=== PATIENT | female | born 2000 | race Caucasian/White ===

== ENCOUNTER → 2020-05-16 | Outpatient (CLI) | payer BC, SELFPAY ==
[2020-05-19 06:07] LABS: Chlamydia By Nucleic Acid AMP Negative (Negative)
[2020-05-19 20:16] LABS: Gonococcus By Nucleic Acid AMP Negative (Negative)
[2020-05-19 20:22] LABS: HPV Reflexed? NOT INDICATED
== END | disposition home or self-care (01) ==
LOC: LABSPEC 11:25
PROVIDERS: Visit Provider Student in an Organized Health Care Education/Training Program
DX: Z12.4 Encounter for screening for malignant neoplasm of cervix (principal); Z11.3 Encounter for screening for infections with a predominantly sexual mode of transmission; Z32.01 Encounter for pregnancy test, result positive
CPT/HCPCS: 87491; 87591; 88175; G0145

== ENCOUNTER → 2020-05-30 09:34 | Outpatient (CLI) | payer BC, SELFPAY ==
[2020-05-30 10:40] LABS: Hematocrit 36.3 % (37-47); Hemoglobin 11.3 g/dL (12.0-15.0); Mean Corp Hgb Conc 31.1 g/dL (32-36); Mean Corpuscular Hgb 24.6 pg (27.0-32.0); Mean Corpuscular Volume 79.1 fL (81-99); Platelet Count 288 K/mm3 (150-450); RBC Distribution Width CV 14.9 % (11.6-14.6); Red Blood Count 4.59 M/mm3 (4.2-5.4); White Blood Count 9.6 K/mm3 (4.4-11.0)
[2020-05-30 10:47] LABS: Glucose Challenge Gest 1H 50g 98 mg/dL (70-140)
== END ==
PROVIDERS: Visit Provider Student in an Organized Health Care Education/Training Program
DX: Z34.81 Encounter for supervision of other normal pregnancy, first trimester (principal)
CPT/HCPCS: 36415; 82950; 85027; 86850; 86900; 86901

== ENCOUNTER → 2020-06-22 10:23 | Outpatient (CLI) | payer BC, SELFPAY ==
[2020-06-22 13:48] LABS: Absolute Lymphocyte Count 1.64 X10^3/uL (0.83-4.51); Absolute Neutrophil Count 7.9 X10^3/uL (2.0-7.7); Basophil# 0.02 X10^3/uL; Basophil% 0.2 % (0-1); Eosinophil# 0.02 X10^3/uL; Eosinophils% 0.2 % (0-5); Hematocrit 36.6 % (37-47); Hemoglobin 11.4 g/dL (12.0-15.0); Lymphocyte # 1.64 X10^3/ul (4.0); Lymphocyte % 16.3 % (19-41); Mean Corp Hgb Conc 31.1 g/dL (32-36); Mean Corpuscular Hgb 25.2 pg (27.0-32.0); Mean Platelet Vol. 11.1 fl (6.2-12.0); Monocyte# 0.46 X10^3/uL; Monocyte% 4.6 % (0-10); NRBC Flagged by Analyzer 0 % (0-5); Neutrophil # 7.88 X10^3/uL (2.7-7.7); Neutrophil % 78.2 % (47-70); Platelet Count 319 K/mm3 (150-450); RBC Distribution Width CV 15.3 % (11.6-14.6); RBC Distribution Width SD 44.3 fl (35.1-43.9); Red Blood Count 4.52 M/mm3 (4.2-5.4); White Blood Count 10.1 K/mm3 (4.4-11.0)
[2020-06-22 14:37] LABS: HIV - WCH Non-Reactive (Nonreactive); Hepatitis B Surface Antigen Non-Reactive (Nonreactive); Hepatitis C Antibody Non-Reactive (Nonreactive); Rubella IgG Reactive (Nonreactive); Syphilis Antibodies Non-reactive
== END ==
PROVIDERS: Visit Provider Student in an Organized Health Care Education/Training Program
DX: Z34.81 Encounter for supervision of other normal pregnancy, first trimester (principal)
CPT/HCPCS: 36415; 85025; 86703; 86762; 86803; 87086; 87088; 87340

== ENCOUNTER → 2020-10-09 16:31 | Outpatient (CLI) | payer BC, MEDICAID, SELFPAY ==
[2020-10-09 17:23] LABS: Hematocrit 33.6 % (37-47); Hemoglobin 10.8 g/dL (12.0-15.0); Mean Corp Hgb Conc 32.1 g/dL (32-36); Mean Corpuscular Hgb 26.5 pg (27.0-32.0); Mean Corpuscular Volume 82.6 fL (81-99); Mean Platelet Vol. 10.2 fl (6.2-12.0); Platelet Count 289 K/mm3 (150-450); RBC Distribution Width CV 14.5 % (11.6-14.6); RBC Distribution Width SD 43.3 fl (35.1-43.9); Red Blood Count 4.07 M/mm3 (4.2-5.4); White Blood Count 11.2 K/mm3 (4.4-11.0)
[2020-10-09 18:35] LABS: Glucose Challenge Gest 1H 50g 113 mg/dL (70-140)
== END ==
PROVIDERS: Visit Provider Obstetrics & Gynecology
DX: Z34.82 Encounter for supervision of other normal pregnancy, second trimester (principal)
CPT/HCPCS: 36415; 82950; 85027

== ENCOUNTER → 2020-10-23 09:29 | Outpatient (CLI) | payer BC, MEDICAID, SELFPAY ==
[2020-10-23 11:50] LABS: Hemoglobin 11.3 g/dL (12.0-15.0); Mean Corp Hgb Conc 32.3 g/dL (32-36); Mean Corpuscular Hgb 26.6 pg (27.0-32.0); Mean Corpuscular Volume 82.4 fL (81-99); Mean Platelet Vol. 10.5 fl (6.2-12.0); Platelet Count 303 K/mm3 (150-450); RBC Distribution Width CV 14.4 % (11.6-14.6); RBC Distribution Width SD 42.7 fl (35.1-43.9); Red Blood Count 4.25 M/mm3 (4.2-5.4); White Blood Count 9.8 K/mm3 (4.4-11.0)
[2020-10-23 12:02] LABS: Protein, Urine (Random) 18.2 mg/dL (<11.9); Protein:Creat Ratio 131 mg/g CRE (0-200)
[2020-10-23 12:04] LABS: ALB/GLOB Ratio 0.6 RATIO (0.9-2.4); AST(SGOT) 28 U/L (15-37); Alanine Aminotransfer ALT/SGPT 61 U/L (13-56); Albumin, Serum 2.8 g/dL (3.2-5.0); Alkaline Phosphatase 177 U/L (45-117); Anion Gap 9 (5-15); BUN 6 mg/dL (7-18); BUN/Creat Ratio 11.2 RATIO (10-20); Calcium,Total 8.8 mg/dL (8.5-10.1); Chloride 103 mmol/L (98-107); Creatinine, Serum 0.54 mg/dL (0.55-1.02); EST Glomerular Filtration Rate 150 mL/min (>60); Est Glom Filt Rate - Afr Amer 182 mL/min (>60); Globulin 4.8 g/dL (2.2-4.2); Glucose 87 mg/dL (74-106); LDH 204 U/L (84-246); Potassium 3.6 mmol/L (3.5-5.1); Protein, Total 7.6 g/dL (6.4-8.2); Sodium Level 135 mmol/L (136-145)
== END ==
PROVIDERS: Visit Provider Student in an Organized Health Care Education/Training Program
DX: O26.899 Other specified pregnancy related conditions, unspecified trimester (principal); R03.0 Elevated blood-pressure reading, without diagnosis of hypertension; Z3A.00 Weeks of gestation of pregnancy not specified
CPT/HCPCS: 36415; 80053; 82570; 83615; 84156; 85027; 87086; 87088

== ENCOUNTER → 2020-10-26 11:50 | Outpatient (CLI) | payer BC, MEDICAID, SELFPAY ==
[2020-10-26 13:35] LABS: Hepatitis B Surface Antigen Non-Reactive (Nonreactive); Rubella IgG Reactive (Nonreactive); Syphilis Antibodies Non-reactive
[2020-10-27 07:30] LABS: Toxoplasma Gondii IgM < 3.0 AU/mL (0.0-7.9)
[2020-10-31 22:26] LABS: CMV Acute Antibody IgM < 30.0 AU/mL (0.0-29.9); CMV Antibody IgG < 0.60 U/mL (0.00-0.59); HSV 1 IgG 1.19 index (0.00-0.90); HSV 2 IgG < 0.91 index (0.00-0.90); PARVOVIRUS B19 IGG 0.3 index (0.0-0.8); PARVOVIRUS B19 IGM 0.2 index (0.0-0.8); Toxoplasma Gondii IgG 41.3 IU/mL (0.0-7.1)
== END ==
PROVIDERS: Referring Provider Medical Genetics Clinical Genetics (M.D.); Visit Provider Medical Genetics Clinical Genetics (M.D.)
DX: O36.5930 Maternal care for other known or suspected poor fetal growth, third trimester, not applicable or unspecified (principal); Z3A.00 Weeks of gestation of pregnancy not specified
CPT/HCPCS: 36415; 86644; 86645; 86695; 86696; 86747; 86762; 86777; 86778; 86780; 87340

== ENCOUNTER → 2020-10-31 12:12 | Outpatient (CLI) | payer BC, MEDICAID, SELFPAY ==
[2020-10-31 13:09] LABS: Hematocrit 34.4 % (37-47); Mean Corpuscular Hgb 26.3 pg (27.0-32.0); Mean Corpuscular Volume 82.3 fL (81-99); Mean Platelet Vol. 10.8 fl (6.2-12.0); Platelet Count 253 K/mm3 (150-450); RBC Distribution Width CV 14.3 % (11.6-14.6); RBC Distribution Width SD 42.2 fl (35.1-43.9); Red Blood Count 4.18 M/mm3 (4.2-5.4); White Blood Count 13.1 K/mm3 (4.4-11.0)
[2020-10-31 13:59] LABS: ALB/GLOB Ratio 0.6 RATIO (0.9-2.4); AST(SGOT) 21 U/L (15-37); Alanine Aminotransfer ALT/SGPT 48 U/L (13-56); Albumin, Serum 2.8 g/dL (3.2-5.0); Alkaline Phosphatase 185 U/L (45-117); Anion Gap 9 (5-15); BUN 7 mg/dL (7-18); Calcium,Total 9.2 mg/dL (8.5-10.1); Chloride 107 mmol/L (98-107); EST Glomerular Filtration Rate 164 mL/min (>60); Est Glom Filt Rate - Afr Amer 198 mL/min (>60); Glucose 76 mg/dL (74-106); Potassium 3.9 mmol/L (3.5-5.1); Protein, Total 7.8 g/dL (6.4-8.2); Sodium Level 136 mmol/L (136-145)
== END ==
PROVIDERS: Visit Provider Obstetrics & Gynecology
DX: O26.893 Other specified pregnancy related conditions, third trimester (principal); R51.9 Headache, unspecified; Z3A.00 Weeks of gestation of pregnancy not specified
CPT/HCPCS: 36415; 80053; 85027

== ENCOUNTER → 2020-12-25 | Outpatient (CLI) | payer BC, MEDICAID, SELFPAY | END | disposition home or self-care (01) | LOC: LABSPEC 12:24 | PROVIDERS: Visit Provider Obstetrics & Gynecology | DX: Z36.85 Encounter for antenatal screening for Streptococcus B (principal) | CPT/HCPCS: 87081 ==

== ENCOUNTER 2021-01-01 10:05 | Outpatient (CLI) | payer BC, MEDICAID, SELFPAY ==
[2021-01-01 10:20] VITALS: BP 128/79; PULSE 95; TEMP 36.4; O2SAT 98
[2021-01-01 10:21] VITALS: BMI 44.8
--- NOTE | 2021-01-03 20:33 | OB.TRI.NOTE ---
HPI - General HPI Narrative JUAN CARLOS TORREZ, is a 20 F who presents to labor and delivery for routine nonstress test at 38 weeks 2 days gestation. care has been remarkable for obesity and a history of intrauterine growth restriction. PFSH PFSH Home Medications prenat.vits,cleo,vje-vagx-sgfxd [ #2] 1 tab PO DAILY 01/01/21 [History Last Taken 12/31/20 16:00] Allergy/AdvReac Type Severity Reaction Status Date / Time No Known Allergies Allergy Verified 01/01/21 10:24 NST FHR Rate Baby A NST Reactive:: Yes FHR Category:: Category I Assessment & Plan (1) growth restriction: PLAN: 38-week 2 days gestation and patient with obesity and IUGR. NST reactive. Routine follow-up in the office recommended.
== END 2021-01-01 11:10 | disposition home or self-care (01) ==
LOC: WPOUT 10:18 → OBT 10:19
PROVIDERS: Visit Provider Obstetrics & Gynecology
DX: O36.5930 Maternal care for other known or suspected poor fetal growth, third trimester, not applicable or unspecified (principal); O99.213 Obesity complicating pregnancy, third trimester; E66.9 Obesity, unspecified; Z3A.38 38 weeks gestation of pregnancy; Z87.59 Personal history of other complications of pregnancy, childbirth and the puerperium
CPT/HCPCS: 59025; 59050

== ENCOUNTER 2021-01-04 07:00 | Inpatient (IN) | payer BC, MEDICAID, SELFPAY ==
[2021-01-04] VITALS (42 sets, daily range): BP systolic 107–196; BP diastolic 63–109; PULSE 59–113; TEMP 35.9–36.6; O2SAT 83–100; BMI 44.1
[2021-01-04] MEDS: Lactated Ringers 1,000 ML 50 ML IV ×2 (08:00→20:26)
[2021-01-04 08:49] LABS: Absolute Lymphocyte Count 2.06 X10^3/uL (0.83-4.51); Absolute Neutrophil Count 7.7 X10^3/uL (2.0-7.7); Basophil# 0.02 X10^3/uL; Basophil% 0.2 % (0-1); Eosinophil# 0.01 X10^3/uL; Eosinophils% 0.1 % (0-5); Hematocrit 31.3 % (37-47); Hemoglobin 10.2 g/dL (12.0-15.0); Lymphocyte # 2.06 X10^3/ul (0.83-4.51); Lymphocyte % 19.9 % (19-41); Mean Corp Hgb Conc 32.6 g/dL (32-36); Mean Corpuscular Hgb 26.3 pg (27.0-32.0); Mean Corpuscular Volume 80.7 fL (81-99); Mean Platelet Vol. 9.4 fl (6.2-12.0); Monocyte# 0.49 X10^3/uL; Monocyte% 4.7 % (0-10); NRBC Flagged by Analyzer 0 % (0-5); Neutrophil # 7.69 X10^3/uL (2.7-7.7); Neutrophil % 74.5 % (47-70); Platelet Count 323 K/mm3 (150-450); RBC Distribution Width CV 14.9 % (11.6-14.6); RBC Distribution Width SD 43.8 fl (35.1-43.9); Red Blood Count 3.88 M/mm3 (4.2-5.4); White Blood Count 10.3 K/mm3 (4.4-11.0)
[2021-01-04] MEDS: Oxytocin 30 units/NS 500 ml 30 UNITS/500 ML IV.SOLN IV (08:50)
--- NOTE | 2021-01-04 17:21 | PN.OBGYN_ITS ---
Subjective Subjective Reports contractions are intensifying 4/10. Objective Data Objective Data Vital Signs: Vital Signs Temp Pulse BP Pulse Ox 96.7 F L 76 127/75 H 99 01/04/21 15:26 01/04/21 17:02 01/04/21 17:02 01/04/21 15:26 Weight: 131.9 kg Body Mass Index (BMI) 44.1 Intake & Output: Intake and Output for Last 24 Hours 01/02/21 01/03/21 01/04/21 23:59 23:59 23:59 Intake Total 439.60 / 439.60 Output Total 275 / 275 Balance 164.60 / 164.60 Lab / Micro Data Result Diagrams: 01/04/21 08:00 Labs: Laboratory Results - last 24 hr 01/04/21 08:00: WBC 10.3, RBC 3.88 L, Hgb 10.2 L, Hct 31.3 L, MCV 80.7 L, MCH 26.3 L, MCHC 32.6, RDW Std Deviation 43.8, RDW Coeff of Rosalio 14.9 H, Plt Count 323, MPV 9.4, Immature Gran % (Auto) 0.600, Neut % (Auto) 74.5 H, Lymph % (Auto) 19.9, [place] % (Auto) 4.7, Eos % (Auto) 0.1, Baso % (Auto) 0.2, Absolute Neuts (auto) 7.7, Absolute Lymphs (auto) 2.06, Nucleated RBC % 0 01/04/21 08:00: Blood Type A POSITIVE, Antibody Screen NEGATIVE Micro: Microbiology 01/04/21 10:30 Nasal Secretion SARS-CoV-2 Antigen (Rapid) - Final Physical Exam Narrative GEN - NAD< AAO x 3 FHR 120, moderate variability, + accelerations, no decelerations TOCO 4/10 min SVE 1.5/70/-3, moderate and midposition Assessment & Plan (1) growth restriction: PLAN: Amniotomy performed with clear fluid FSE placed Continue pitocin as tolerated by mother and fetus (2) 38 weeks gestation of :
--- NOTE | 2021-01-04 17:23 | PCM.HP.OB ---
HPI - General General Date of Admission: 01/04/21 HPI Narrative JUAN CARLOS TORREZ, is a 20 F who presents at 38 5/7 weeks gestation for scheduled induction of labor for growth restriction. [facility] Medical History Headache Home Medications prenat.vits,cleo,qzs-zoin-unweg [ #2] 1 tab PO DAILY 01/01/21 [History Last Taken 01/01/21 13:00 2 gummies] Allergy/AdvReac Type Severity Reaction Status Date / Time No Known Allergies Allergy Verified 01/01/21 10:24 Family History Other Hypertension Social History adopted: No household members: significant other housing: house number of children: 1 financial difficulty paying for basics: somewhat hard service: No current occupational status: previously employed current occupational exposures/hazards: No pets and animals: Yes (1 dog) leisure activities: reading and volunteer work history of recent travel: No sexually active: Yes do you think of yourself as: straight/heterosexual current gender identity: female Smoking Status: Former smoker Electronic Cigarette Use: with nicotine smoking status stop date: 05/17/20 how long ago did patient quit smokin months ago second hand exposure: Yes (Grandma, who they live with, is a smoker) quit status: quit date established substance use type: does not use well-balanced diet: about half the time caffeine: Yes (Not as much recently) eating out: 1-3 times/week during the past year weight has: remained stable what type of physical activity do you participate in: walking How many days of moderate to strenuous exercise, like a brisk walk, did you do in the last 7 days: 1 frequency: 1-2 times per week duration: 30-45 minutes/day seatbelt use: always do you feel safe at home: Yes History 1 Elective abortions Hx Para 0 Spontaneous abortions Hx # Term Pregnancies Ectopic pregnancies Hx # Pregnancies Multiple births # of living children NST FHR Rate Baby A Baseline: 130 Variability:: Moderate Accelerations:: 15 x 15 Decelerations:: Variable NST Reactive:: Yes FHR Category:: Category II Uterine Activity:: 0/10 Vital Signs Vital Signs Vital Signs: 01/04/21 07:15 01/04/21 07:18 01/04/21 08:52 Temperature 97.4 F L 97.1 F L Temperature Source Temporal Temporal Pulse Rate 100 113 H 98 Blood Pressure 130/78 H 130/78 H BP Systolic 130 130 BP Diastolic 78 78 Pulse Ox 98 98 01/04/21 08:53 01/04/21 08:54 01/04/21 10:01 Temperature 97.4 F L Temperature Source Temporal Pulse Rate 98 86 Blood Pressure 120/70 BP Systolic 120 BP Diastolic 70 Pulse Ox 97 83 98 01/04/21 10:02 01/04/21 11:04 01/04/21 11:05 Temperature 97.0 F L Temperature Source Temporal Pulse Rate 86 90 89 Blood Pressure 132/75 H 118/65 BP Systolic 132 118 BP Diastolic 75 65 Pulse Ox 98 01/04/21 12:20 01/04/21 12:21 01/04/21 13:17 Temperature 96.8 F L 97.0 F L Temperature Source Temporal Temporal Pulse Rate 72 79 Blood Pressure 119/73 119/73 107/63 BP Systolic 119 119 107 BP Diastolic 73 73 63 Pulse Ox 99 97 01/04/21 14:09 01/04/21 14:11 01/04/21 15:26 Temperature 97.0 F L 96.7 F L Temperature Source Temporal Temporal Pulse Rate 81 72 69 Blood Pressure 127/73 H 127/73 H 127/74 H BP Systolic 127 127 127 BP Diastolic 73 73 74 Pulse Ox 100 99 01/04/21 15:27 01/04/21 17:02 Temperature Temperature Source Pulse Rate 74 76 Blood Pressure 127/74 H 127/75 H BP Systolic 127 127 BP Diastolic 74 75 Pulse Ox Weight Weight: 131.9 kg Body Mass Index (BMI) 44.1 Physical Exam Const alert, oriented x3 and no apparent distress HEENT normocephalic Resp normal respiratory effort, normal air movement and clear to auscultation bilaterally Cardio regular rate and regular rhythm GI normal to inspection, nondistended, normoactive bowel sounds, soft to palpation, non-tender and non-distended Inspection: gravid Extremity Extremity Narrative: trace b/l pedal edema General Extremity: calf tenderness Neuro deep tendon reflexes 2+ bilaterally Motor Exam: clonus absent Labs Labs Labs: Blood Type A POSITIVE Antibody Screen NEGATIVE Hct 31.3 % (37-47) L Hgb 10.2 g/dL (12.0-15.0) L Syphilis Total Ab Non-reactive Rubella IgG Antibody Reactive (Nonreactive) Hep Bs Antigen Non-Reactive (Nonreactive) Neisseria gonorrhoeae DNA (ALIZA) Negative (Negative) HIV 1&2 Antibody Non-Reactive (Nonreactive) Glucose 1 Hr 50 gm 113 mg/dL (70-140) Miscellaneous Test Assessment & Plan (1) : QUALIFIERS: Weeks of gestation: 38 weeks Qualified Code(s): Z3A.38 - 38 weeks gestation of (2) 38 weeks gestation of : (3) growth restriction: PLAN: Start [employer] If tolerates plan to start induction
[2021-01-04] MEDS: fentaNYL 100 MCG/2 ML Ampul IV ×2 (20:27→22:27)
[2021-01-04] MEDS: Lactated Ringers 500 ML 999 ML IV ×2 (20:37→23:11)
[2021-01-05] VITALS (71 sets, daily range): BP systolic 87–163; BP diastolic 51–87; PULSE 61–116; RESP 16–18; TEMP 36.1–37.2; O2SAT 82–100
[2021-01-05] MEDS: fentaNYL-bupivacaine (epidural) 100 ML BAG EPIDURAL ×2 (00:25→05:05)
[2021-01-05] MEDS: Lactated Ringers 500 ML 999 ML IV ×2 (01:03→06:39)
[2021-01-05] MEDS: Lactated Ringers 1,000 ML 200 ML IV ×2 (03:34→09:19)
[2021-01-05] MEDS: Ondansetron 4 MG/2 ML Vial IV (08:15)
[2021-01-05] MEDS: 0.9% Saline Lock 10 ML Syringe IV (08:15)
[2021-01-05] MEDS: Oxytocin 30 units/NS 500 ml 30 UNITS/500 ML IV.SOLN 334 UNITS IV (09:40)
--- NOTE | 2021-01-05 09:46 | PLAC_PTH ---
PATIENT: JUAN CARLOS TORREZ LOC: [facility] U#:[id number] AGE/SX: 20/F ROOM: [facility]006 RE01/04/[address]: Dr. Lisa Palmer MD : 2000 BED: 1 DIS: 01/07/2021 SPEC #: [id number] RECD: 01/05/21 10:23 STATUS: GLORIA RECecelia #: [id number] ZEYAD: 01/05/21 09:[address]: Lisa Blake DEPT: SURGICAL PATHOLOGY RECD BY: Genoveva Cloud ENTERED: 01/05/21 11:32 SP TYPE: PLACENTA OTHR DR: No Primary Care Phys Tissues: Placenta, NOS Procedures: Surgery Specimen Level V HEADER OPERATION: Vaginal delivery PRE-OP DIAGNOSIS: IUGR, 38+ wga, TISSUE SUBMITTED: Placenta MICROSCOPIC DIAGNOSIS [place] placenta (260 gm): Umbilical cord ? trivascular with no inflammation. Placental membranes ? mild acute deciduitis. Placental disc ? foci of organizing intraparenchymal hemorrhage, mild Santiago-Rusty change and mildly increased intraparenchymal microcalcifications. AM:pat 01/09/2021 MICROSCOPIC DESCRIPTION Slides are reviewed. GROSS DESCRIPTION SPECIMEN: PLACENTA / CLINICAL INFORMATION: A. Weight: 2.225 kg B. Gestational Age: 38 weeks C. Sex: Female PLACENTAL WEIGHT (POST FIXATION): 260 gm PLACENTAL DIMENSIONS: 13 x 13 x 3 cm PLACENTAL SHAPE: Usual ovoid PLACENTAL WEIGHT FOR GESTATIONAL AGE: Under 10-99th percentile MEMBRANES - Present A. Insertion: Marginal B. Site of rupture from edge: 4 cm from edge of placental disc C. Color of membrane: Barone-torres D. Abnormalities: None UMBILICAL CORD - Present A. Color: Barone-torres B. Insertion: Eccentric C. Length: 27 cm D. Diameter: 1.5 cm E. Number of vessels: Three F. Abnormalities: None PLACENTAL DISC - Present A. Color of surface: Barone-torres B. surface abnormalities: None C. Maternal cotyledons: Intact with minimal tears D. Attached retro placental clot: No clot E. Cut surface: Dark red and spongy F. Lesions: Barone-white lesion 1.5 cm in greatest dimension G. Separate clot: 10 x 4 x 2 cm SECTIONS SUBMITTED: 1. Umbilical cord ( end notched) 2. Umbilical cord, placental end 3. Membrane roll, lesion 4. Placental disc, and maternal surfaces 5. Placental disc, and maternal surfaces 6. Placental disc, and maternal surfaces AM:pat 01/08/21 TC:2 CPT: 61510
--- NOTE | 2021-01-05 10:34 | EX.PCM.OBRPT ---
Assessment & Plan (1) (spontaneous vaginal delivery): Vaginal Delivery Maternal Presentation Maternal Presentation: Medically Indicated Induction Medical Reason for Induction: Compromise: list: (IUGR) and - Operative Information Date of Procedure: 01/05/21 Pre-Operative Diagnosis: 1. 38 weeks 6 days 2. IUGR Post-Operative Diagnosis: 1. 38 weeks 6 days 2. IUGR Surgery / Procedure Performed: Spontaneous Vaginal Delivery Type of Anesthesia: Epidural Drain: Campuzano to straight drain Estimated Blood Loss: 250 ml Findings Description of Procedure: Patient was FD/+4 on my arrival. She pushed to deliver a female in OA over an intact perineum. Loose nuchal cord x 1 reduced. The infant was placed on the maternal abdomen and further attended by nursery personnel. The placenta delivered spontaneously and appeared intact on inspection. Fundus firm and nontender. Perineum intact. Sponge counts correct x 2. Presentation: Vertex Time of Membrane Rupture: 1705 01/04/21 Amniotic Fluid Description: Clear Placental Delivery Description: Spontaneous Placenta Disposition: [facility] Specimen(s) Removed: placenta Cord Vessel Description: 3 Vessels Cord Entanglement: Around neck x 1, loose A Gender: Female (1 minute): 7 (5 minute): 9 Delayed Cord Clamping: Yes Post Vaginal Delivery Medications Given After Delivery: IV Pitocin Episiotomy Description: None Laceration: None Complication Complications: None
[2021-01-05] MEDS: Senna/Docusate Sodium 1 Tablet PO (20:42)
[2021-01-06 04:54] VITALS: BP 132/76; PULSE 72; RESP 16; TEMP 36.4
[2021-01-06 08:12] VITALS: BP 136/74; PULSE 87; RESP 16; TEMP 36.2; O2SAT 96
--- NOTE | 2021-01-06 09:12 | PCM.PN.OB ---
Subjective Subjective No issues overnight. Has mild cramping. Denies heavy lochia. She is formula feeding. No complaints. Objective Data Objective Data Vital Signs: Vital Signs Temp Pulse Resp BP Pulse Ox 97.2 F L 87 16 136/74 H 96 01/06/21 08:12 01/06/21 08:12 01/06/21 08:12 01/06/21 08:12 01/06/21 08:12 Oxygen Delivery Method Room Air Weight: 131.9 kg Body Mass Index (BMI) 44.1 Intake & Output: Intake and Output for Last 24 Hours 01/04/21 01/05/21 01/06/21 23:59 23:59 23:59 Intake Total 2002.39 / 2002.39 3912.77 / 3912.77 Output Total 775 / 775 3800 / 3800 Balance 1228.39 / 1228.39 112.77 / 112.77 Lab / Micro Data Result Diagrams: 01/04/21 08:00 Micro: Microbiology 01/04/21 10:30 Nasal Secretion SARS-CoV-2 Antigen (Rapid) - Final Physical Exam Const alert, oriented x3 and no apparent distress Resp normal respiratory effort and normal air movement Cardio regular rate, regular rhythm, S1 normal heart sound and S2 normal heart sound GI soft to palpation and non-distended Narrative: moderate lochia Uterus Palpation: uterus fundus firm and other OB fundus nontender Extremity no calf tenderness Extremity Narrative: +2 b/l pedal edema to mid leg Neuro oriented x3 Assessment & Plan (1) (spontaneous vaginal delivery): PLAN: PPD#1 -Rh positive, Rubella immune -Formula feeding -Routine care -d/c home tomorrow given infant SGA
[2021-01-06 14:00] VITALS: BP 110/61; PULSE 79; RESP 18; TEMP 36.2
[2021-01-06 20:47] VITALS: BP 135/77; PULSE 89; RESP 18; TEMP 36.3; O2SAT 98
[2021-01-07 02:33] VITALS: BP 121/63; PULSE 84; RESP 18
--- NOTE | 2021-01-07 07:51 | PCM.PN.OB ---
Subjective Subjective No issues overnight. Had a bowel movement. Denies heavy lochia. Feels well. Objective Data Objective Data Vital Signs: Vital Signs Temp Pulse Resp BP Pulse Ox 97.4 F L 84 18 121/63 H 98 01/06/21 20:47 01/07/21 02:33 01/07/21 02:33 01/07/21 02:33 01/06/21 20:47 Oxygen Delivery Method Room Air Weight: 131.9 kg Body Mass Index (BMI) 44.1 Intake & Output: Intake and Output for Last 24 Hours 01/05/21 01/06/21 01/07/21 23:59 23:59 23:59 Intake Total 3912.77 / 3912.77 Output Total 3800 / 3800 Balance 112.77 / 112.77 Lab / Micro Data Result Diagrams: 01/04/21 08:00 Micro: Microbiology 01/04/21 10:30 Nasal Secretion SARS-CoV-2 Antigen (Rapid) - Final Physical Exam Const alert, oriented x3 and no apparent distress Resp normal respiratory effort and normal air movement Cardio regular rate, regular rhythm, S1 normal heart sound and S2 normal heart sound GI soft to palpation, non-tender and non-distended Uterus Palpation: uterus fundus firm and other OB fundus nontender Extremity no calf tenderness Neuro oriented x3 Assessment & Plan (1) (spontaneous vaginal delivery): PLAN: PPD#2 s/p doing well. Plan for d/c home today
--- NOTE | 2021-01-07 07:57 | PCM.DC ---
Discharge Instructions Diet Discharge Diet: No restrictions Activity Discharge Activity: Return to Normal Activity May resume sexual activity in: 4-6 weeks Lifting Restrictions: 20-25 lb Dressing / Incision Call your doctor if you observe: Fever of 101 or Higher, Using more than 1 pad per hour, Shortness of breath, Chest pain, Calf discomfort, Uncontrolled pain and - (Persistent or severe headache) Follow Up Care Please Follow Up With: Valentino Spain MD When: 3 weeks for telehealth follow up 6 weeks for visit Test Results: Test results from this visit will be discussed in further detail at your follow-up appointment, if applicable. Discharge Plan Admission Admit Date/Time: 01/04/21 07:00 Primary Reason for Your Visit: Vaginal delivery Attending Provider: Lisa Blake Primary Care Provider: Serina Garcia Primary Instructions Patient Instructions: After a Vaginal , Understanding Depression Discharge Orders/Prescriptions Prescriptions: New ibuprofen 600 mg Tablet 600 mg PO Q8H PRN PRN (Reason: Pain Score 1-3) Qty: 30 RF: 0 Continued prenat.vits,cleo,rch-qheo-uvcyn Tablet 1 tab PO DAILY RF: 0 Referrals / Follow Up: Care Physician,No Primary [Primary Care Provider] - Disposition Disposition (needs filled in before D/C Order can be placed): Home, Self Care
[2021-01-07 08:00] VITALS: BP 128/73; PULSE 79; RESP 16; TEMP 36.4
[2021-01-07 11:56] VITALS: BP 140/80; PULSE 87; RESP 18; TEMP 36.3
[2021-01-09 12:44] LABS: Pathology Specimen OB SEE PATHOLOGY REPORT
== END 2021-01-07 13:32 | disposition home or self-care (01) | DRG 807 ==
PROVIDERS: Admitting Provider Obstetrics & Gynecology; Referring Provider Obstetrics & Gynecology; Visit Provider Obstetrics & Gynecology
DX: O76 Abnormality in fetal heart rate and rhythm complicating labor and delivery (principal); Z37.0 Single live birth; O36.5930 Maternal care for other known or suspected poor fetal growth, third trimester, not applicable or unspecified; O69.81X0 Labor and delivery complicated by cord around neck, without compression, not applicable or unspecified; Z3A.38 38 weeks gestation of pregnancy; Z87.891 Personal history of nicotine dependence
CPT/HCPCS: 59020; 59025; 59050; 76815; 85025; 86850; 86900; 86901; 87426; 88307; 99218; J7120; A4216; G0378; J2405

== ENCOUNTER 2021-08-07 11:50 | Outpatient (CLI) | payer BC, MEDICAID, SELFPAY ==
[2021-08-07 12:24] LABS: Absolute Lymphocyte Count 1.66 X10^3/uL (0.83-4.51); Absolute Neutrophil Count 7.1 X10^3/uL (2.0-7.7); Basophil# 0.02 X10^3/uL; Basophil% 0.2 % (0-1); Eosinophil# 0.02 X10^3/uL; Eosinophils% 0.2 % (0-5); Hematocrit 33.1 % (37-47); Hemoglobin 10.7 g/dL (12.0-15.0); Lymphocyte # 1.66 X10^3/ul (0.83-4.51); Lymphocyte % 17.7 % (19-41); Mean Corp Hgb Conc 32.3 g/dL (32-36); Mean Corpuscular Hgb 26.2 pg (27.0-32.0); Mean Corpuscular Volume 80.9 fL (81-99); Mean Platelet Vol. 9.3 fl (6.2-12.0); Monocyte# 0.46 X10^3/uL; Monocyte% 4.9 % (0-10); NRBC Flagged by Analyzer 0 % (0-5); Neutrophil # 7.14 X10^3/uL (2.7-7.7); Neutrophil % 76.4 % (47-70); Platelet Count 315 K/mm3 (150-450); RBC Distribution Width SD 46.7 fl (35.1-43.9); Red Blood Count 4.09 M/mm3 (4.2-5.4); White Blood Count 9.4 K/mm3 (4.4-11.0)
[2021-08-07 13:53] LABS: HIV - WCH Non-Reactive (Nonreactive); Hepatitis B Surface Antigen Non-Reactive (Nonreactive); Hepatitis C Antibody Non-Reactive (Nonreactive); Rubella IgG Reactive (Nonreactive); Syphilis Antibodies Non-reactive
== END 2021-08-07 23:59 | disposition home or self-care (01) ==
LOC: WOBLAB 11:53
PROVIDERS: Visit Provider Obstetrics & Gynecology
DX: Z34.82 Encounter for supervision of other normal pregnancy, second trimester (principal)
CPT/HCPCS: 36415; 85025; 86703; 86762; 86780; 86803; 87086; 87088; 87340

== ENCOUNTER → 2021-09-04 | Outpatient (CLI) | payer BC, MEDICAID, SELFPAY ==
[2021-09-04 17:24] LABS: Hematocrit 31.3 % (37-47); Hemoglobin 10.3 g/dL (12.0-15.0); Mean Corp Hgb Conc 32.9 g/dL (32-36); Mean Corpuscular Hgb 26.6 pg (27.0-32.0); Mean Corpuscular Volume 80.9 fL (81-99); Mean Platelet Vol. 9.9 fl (6.2-12.0); Platelet Count 317 K/mm3 (150-450); RBC Distribution Width CV 15.5 % (11.6-14.6); RBC Distribution Width SD 44.9 fl (35.1-43.9); Red Blood Count 3.87 M/mm3 (4.2-5.4); White Blood Count 10.1 K/mm3 (4.4-11.0)
[2021-09-04 17:38] LABS: Glucose Challenge Gest 1H 50g 127 mg/dL (70-140)
== END | disposition home or self-care (01) ==
PROVIDERS: Visit Provider Obstetrics & Gynecology
DX: Z34.83 Encounter for supervision of other normal pregnancy, third trimester (principal)
CPT/HCPCS: 36415; 82950; 85027

== ENCOUNTER → 2021-11-05 | Outpatient (CLI) | payer BC, MEDICAID, SELFPAY | END | disposition home or self-care (01) | LOC: LABSPEC 14:33 | PROVIDERS: Visit Provider Obstetrics & Gynecology | DX: Z34.83 Encounter for supervision of other normal pregnancy, third trimester (principal); Z36.85 Encounter for antenatal screening for Streptococcus B | CPT/HCPCS: 87081 ==

== ENCOUNTER 2021-11-19 07:05 | Inpatient (IN) | payer BC, MEDICAID, SELFPAY ==
[2021-11-19] VITALS (41 sets, daily range): BP systolic 109–167; BP diastolic 61–98; PULSE 61–190; RESP 16–17; TEMP 35.9–36.7; O2SAT 83–100; BMI 44.6
--- NOTE | 2021-11-19 08:13 | PCM.HP.BLA ---
History and Physical Date of Admission: 11/19/21 Chief complaint: Induction of labor at term History present illness: 21-year-old at 39 weeks and 0 days with YONATHAN 11/26/2021 by 10-week ultrasound arrives for induction of labor at term. Denies headache, visual changes, chest pain, shortness of breath, nausea vomit, right upper quadrant pain. Patient states good movement. Obstetric history: G1: 38-week female 12/2020 IUGR G2: Current Past medical history: None Medications: vitamin Past surgical history: None Allergies: No known drug allergies Social history: Denies smoking, alcohol use, drug use Family history: Denies history DVT or PE Review of systems: Besides above pertinent positives a 4 view of systems was performed and found to be negative Physical exam: Vitals: Blood pressure 113/70 pulse 79 SPO2 98% on room air General: Normal-appearing no acute distress none HEENT: Normocephalic atraumatic no cervical of adenopathy Cardiac/respiratory: No use of accessory muscles, nonlabored breathing Abdomen: Soft, nontender, gravid Extremities: No peripheral edema normal peripheral pulses Psych: Normal affect, demeanor nonpressured speech Labs: Pending Assessment plan: 21-year-old G2, P1 at 39 weeks 0 days for induction of labor at term Admit labor and delivery CEFM GBS negative Pitocin induction Routine orders Anesthesia see
[2021-11-19] MEDS: Lactated Ringers 1,000 ML 50 ML IV (08:18)
[2021-11-19] MEDS: Oxytocin 30 units/NS 500 ml 30 UNITS/500 ML IV.SOLN IV (08:22)
--- NOTE | 2021-11-19 08:31 | PCM.PN.OB ---
Subjective Subjective Pt comfortable no complaints Objective Data Objective Data Vital Signs: Vital Signs Temp Pulse BP Pulse Ox 97.6 F L 79 113/70 98 11/19/21 08:09 11/19/21 08:08 11/19/21 08:08 11/19/21 08:09 Weight: 293 lb 3.437 oz Body Mass Index (BMI) 44.6 Lab / Micro Data Result Diagrams: 11/19/21 08:15 Physical Exam Const alert, oriented x3, no apparent distress, average body habitus, healthy appearing and well nourished HEENT normocephalic and moist oral mucous membranes Eyes PERRL Resp normal respiratory effort, no retractions and no use of accessory muscles GI GI Narrative: soft, nontender, gravid Narrative: CE 2-3/60/-2. AROM clear fluid Extremity normal to inspection, full ROM and no clubbing, cyanosis or edema Neuro moves all extremities and no focal motor deficits Psych mental status grossly normal, affect normal, speech normal and activity/motor behavior normal Assessment & Plan (1) : PLAN: Pt seen and examined. AROM clear fluid. Considering epidural. Continue current management
[2021-11-19 08:43] LABS: Absolute Lymphocyte Count 2.24 X10^3/uL (0.83-4.51); Absolute Neutrophil Count 6.3 X10^3/uL (2.0-7.7); Basophil# 0.03 X10^3/uL; Basophil% 0.3 % (0-1); Eosinophil# 0.02 X10^3/uL; Eosinophils% 0.2 % (0-5); Hematocrit 31.6 % (37-47); Hemoglobin 9.8 g/dL (12.0-15.0); Lymphocyte # 2.24 X10^3/ul (0.83-4.51); Lymphocyte % 24.3 % (19-41); Mean Corpuscular Hgb 24.7 pg (27.0-32.0); Mean Corpuscular Volume 79.6 fL (81-99); Mean Platelet Vol. 9.4 fl (6.2-12.0); Monocyte# 0.52 X10^3/uL; Monocyte% 5.7 % (0-10); NRBC Flagged by Analyzer 0 % (0-5); Neutrophil % 68.5 % (47-70); Platelet Count 303 K/mm3 (150-450); RBC Distribution Width CV 15.5 % (11.6-14.6); RBC Distribution Width SD 44.7 fl (35.1-43.9); Red Blood Count 3.97 M/mm3 (4.2-5.4); White Blood Count 9.2 K/mm3 (4.4-11.0)
[2021-11-19] MEDS: LACTATED RINGERS 500 ML 999 ML IV (11:42)
[2021-11-19] MEDS: fentaNYL-bupivacaine (epidural) 100 ML BAG EPIDURAL (13:24)
[2021-11-19] MEDS: Ondansetron 4 MG/2 ML Vial IV (14:24)
[2021-11-19] MEDS: Oxytocin 30 units/NS 500 ml 30 UNITS/500 ML IV.SOLN 334 UNITS IV (17:05)
[2021-11-19] MEDS: Methylergonovine 0.2 MG/ML Ampul IM (17:10)
--- NOTE | 2021-11-19 17:19 | EX.PCM.OBRPT ---
Vaginal Delivery Findings Description of Procedure: Normal spontaneous vaginal delivery of a viable female infant, vertex ISAAC. Head and shoulders delivered with ease. Cord cut clamped. Baby handed off to patient. Placenta delivered via cord traction and fundal massage. First-degree midline perineal laceration noted and repaired in typical fashion. Short second stage of labor, prophylactic Methergine given IM. EBL 300 cc Apgars 9/9
[2021-11-19] MEDS: Acetaminophen 500 MG Tablet 1000 MG PO (18:13)
[2021-11-19] MEDS: 0.9% Saline Lock 10 ML Syringe IV (20:04)
[2021-11-20 04:45] VITALS: BP 124/72; PULSE 79; RESP 16; TEMP 36.1
[2021-11-20 08:20] VITALS: BP 120/76; PULSE 84; RESP 16; TEMP 36.2
--- NOTE | 2021-11-20 10:42 | PCM.PN.OB ---
Subjective Subjective Reports cramping, otherwise doing well. OOB, ambulating and voiding without difficulty. Denies heavy lochia. Pt requests d/c home today. Objective Data Objective Data Vital Signs: Vital Signs Temp Pulse Resp BP Pulse Ox O2 Del Method 97.1 F L 84 16 120/76 97 Room Air 11/20/21 08:20 11/20/21 08:20 11/20/21 08:20 11/20/21 08:20 11/19/21 19:57 11/20/21 08:20 Oxygen Delivery Method Room Air Weight: 133 kg Body Mass Index (BMI) 44.6 Intake & Output: Intake and Output for Last 24 Hours 11/18/21 11/19/21 11/20/21 23:59 23:59 23:59 Intake Total 2051. / Output Total 200 / 200 900 / 900 Balance 1852.20 / 185.20 -900 / -900 Lab / Micro Data Result Diagrams: 11/19/21 08:15 Micro: Microbiology 11/19/21 08:15 Nasal Secretion SARS-CoV-2 Antigen (Rapid) - Final Physical Exam Const alert, oriented x3 and no apparent distress Resp normal respiratory effort and normal air movement Cardio regular rate, regular rhythm, S1 normal heart sound and S2 normal heart sound Uterus Palpation: uterus fundus firm and other OB fundus nontender Extremity no calf tenderness Neuro oriented x3 Assessment & Plan (1) (spontaneous vaginal delivery): PLAN: PPD#1 s/p uncomplicated A positive, Rubella immune Routine care Plan for d/c home this evening
--- NOTE | 2021-11-20 11:19 | PCM.DC.SUM ---
Providers Date of Admission: 11/19/21 Primary Care Physician: Serina Primary Care Phys Reason For Visit: VAGINAL DELIVERY Diagnosis Discharge Diagnosis (1) (spontaneous vaginal delivery): Status: Acute Code(s): O80 - Encounter for full-term uncomplicated delivery Plan: PPD#1 s/p uncomplicated A positive, Rubella immune Routine care Plan for d/c home this evening Medications at Discharge Home Medications prenat.vits,cleo,rct-bbqc-detln 1 tab PO DAILY Check with primary doctor 01/01/21 ferrous sulfate 27 mg iron tablet 27 mg PO DAILY anamia 11/19/21 ibuprofen 600 mg tablet 600 mg PO Q8H PRN PRN Pain Score 1-3 #30 tabs 11/20/21 Hospital Course Operations None Procedures None Summary of Care Provided Hospital Course: 21yo admitted at 39 weeks for scheduled induction of labor. She had an uncomplicated vaginal delivery. She was discharged to home on day #1. Weight / BMI Weight Weight: 133 kg Body Mass Index (BMI) 44.6 ABG / Lab / Microbiology Data Result Diagrams: 11/19/21 08:15 Microbiology: Microbiology 11/19/21 08:15 Nasal Secretion SARS-CoV-2 Antigen (Rapid) - Final D/C Instructions Discharge Diet: No restrictions May resume sexual activity in: 4-6 weeks Lifting Restricted to (Lbs): 20 Call your doctor if you observe: Fever of 101 or Higher, Inability to urinate, Using more than 1 pad per hour, Shortness of breath, Chest pain, Calf discomfort, Uncontrolled pain and - (Persistent or severe headache) Please Follow Up With: Valentino Spain MD When: 3 weeks for telehealth follow up 6 weeks for visit Meaningful Use Info Meaningful Use Diagnoses (Choose all that apply): None applicable Discharge Plan Admission Admit Date/Time: 11/19/21 07:05 Primary Reason for Your Visit: Vaginal delivery Attending Provider: Valentino Spain Primary Care Provider: Tavon PhysicianSerina Primary Discharge Orders/Prescriptions Prescriptions: New ibuprofen 600 mg Tablet 600 mg PO Q8H PRN PRN (Reason: Pain Score 1-3) Qty: 30 0RF Continued prenat.vits,cleo,rqh-rghr-dyype Tablet 1 tab PO DAILY ferrous sulfate 27 mg iron Tablet 27 mg PO DAILY Referrals / Follow Up: Care Physician,Serina Primary [Primary Care Provider] - Disposition Disposition (needs filled in before D/C Order can be placed): Home, Self Care
--- NOTE | 2021-11-20 11:22 | DCINST_ITS ---
Discharge Instructions Diet Discharge Diet: No restrictions Activity Discharge Activity: Return to Normal Activity and May Shower May resume sexual activity in: 4-6 weeks Lifting Restrictions: 20lb Dressing / Incision Call your doctor if you observe: Fever of 101 or Higher, Inability to urinate, Using more than 1 pad per hour, Shortness of breath, Chest pain, Calf discomfort, Uncontrolled pain and - (Persistent or severe headache) Follow Up Care Please Follow Up With: Valentino Spain MD When: 3 weeks for telehealth visit 6 weeks for visit Test Results: Test results from this visit will be discussed in further detail at your follow- up appointment, if applicable. Discharge Plan Admission Admit Date/Time: 11/19/21 07:05 Primary Reason for Your Visit: Vaginal delivery Attending Provider: Valentino Spain Primary Care Provider: Serina Garcia Primary Discharge Orders/Prescriptions Prescriptions: New ibuprofen 600 mg Tablet 600 mg PO Q8H PRN PRN (Reason: Pain Score 1-3) Qty: 30 0RF Continued prenat.vits,cleo,lru-jean-mkqvb Tablet 1 tab PO DAILY ferrous sulfate 27 mg iron Tablet 27 mg PO DAILY Referrals / Follow Up: Care Physician,Serina Primary [Primary Care Provider] - Disposition Disposition (needs filled in before D/C Order can be placed): Home, Self Care
[2021-11-20 12:27] VITALS: BP 128/80; PULSE 91; RESP 16; TEMP 36.2
[2021-11-20] MEDS: Ibuprofen 600 MG Tablet PO (16:34)
[2021-11-20 16:38] VITALS: BP 128/76; PULSE 80; RESP 16; TEMP 36.2
== END 2021-11-20 17:43 | disposition home or self-care (01) | DRG 807 ==
PROVIDERS: Admitting Provider Obstetrics & Gynecology; Referring Provider Obstetrics & Gynecology; Visit Provider Obstetrics & Gynecology
DX: O62.3 Precipitate labor (principal); Z37.0 Single live birth; O70.0 First degree perineal laceration during delivery; Z3A.39 39 weeks gestation of pregnancy
CPT/HCPCS: 59025; 59050; 85025; 86850; 86900; 86901; 87426; 99218; J7120; A4216; G0378; J2405

== ENCOUNTER → 2022-10-25 | Outpatient (CLI) | payer MEDICAID, SELFPAY ==
[2022-10-25 15:57] LABS: Absolute Neutrophil Count 8.2 X10^3/uL (2.0-7.7); Basophil# 0.03 X10^3/uL; Basophil% 0.3 % (0-1); Eosinophil# 0.03 X10^3/uL; Eosinophils% 0.3 % (0-5); Hematocrit 36.1 % (37-47); Hemoglobin 11.2 g/dL (12.0-15.0); Lymphocyte % 20.1 % (19-41); Mean Corpuscular Hgb 24.8 pg (27.0-32.0); Mean Platelet Vol. 10.5 fl (6.2-12.0); Monocyte# 0.46 X10^3/uL; Monocyte% 4.2 % (0-10); NRBC Flagged by Analyzer 0 % (0-5); Neutrophil # 8.18 X10^3/uL (2.7-7.7); Neutrophil % 74.7 % (47-70); Platelet Count 356 K/mm3 (150-450); RBC Distribution Width CV 17.1 % (11.6-14.6); RBC Distribution Width SD 49.4 fl (35.1-43.9); Red Blood Count 4.51 M/mm3 (4.2-5.4); White Blood Count 10.9 K/mm3 (4.4-11.0)
[2022-10-25 17:08] LABS: HIV - WCH Non-Reactive (Nonreactive); Hepatitis B Surface Antigen Non-Reactive (Nonreactive); Hepatitis C Antibody Non-Reactive (Nonreactive); Rubella IgG Equiv (Nonreactive); Syphilis Antibodies Non-reactive
[2022-10-27 08:08] LABS: V-Zoster IgG (Immunity) 2563 index (Immune >165)
== END | disposition home or self-care (01) ==
PROVIDERS: Visit Provider Obstetrics & Gynecology
DX: N91.2 Amenorrhea, unspecified (principal)
CPT/HCPCS: 36415; 85025; 86703; 86762; 86780; 86787; 86803; 87086; 87088; 87340

== ENCOUNTER → 2022-11-04 | Outpatient (CLI) | payer MEDICAID, SELFPAY ==
--- NOTE | 2022-11-04 09:17 | US_ITS ---
STUDY: ULTRASOUND BREAST - RIGHT REASON FOR EXAM: Female, 22 years old. Lateral right breast pain. Patient is 15 weeks . TECHNIQUE: Axial and longitudinal images of the RIGHT breast were performed with a high resolution ultrasound transducer. # OF IMAGES: 58 COMPARISON: None. FINDINGS: RIGHT Breast: The lateral half of the right breast was examined with ultrasound. There is dense fibroglandular tissue. No sonographic abnormality is seen. US/Breast Limited Unilateral IMPRESSION: No sonographic abnormality is seen. ASSESSMENT CATEGORY: BIRADS Category 1: Negative. A letter regarding these results will be sent to the patient by the facility within 30 days. Electronically Signed: Edu Porter MD at 11:20 EDT ,
== END | disposition home or self-care (01) ==
LOC: OPBI 09:14
PROVIDERS: Referring Provider Obstetrics & Gynecology; Visit Provider Obstetrics & Gynecology
DX: N64.4 Mastodynia (principal)
CPT/HCPCS: 76642

== ENCOUNTER → 2023-01-13 | Outpatient (CLI) | payer MEDICAID, SELFPAY ==
[2023-01-13 13:36] LABS: Hematocrit 32.5 % (37-47); Hemoglobin 10.3 g/dL (12.0-15.0); Mean Corp Hgb Conc 31.7 g/dL (32-36); Mean Corpuscular Volume 85.3 fL (81-99); Mean Platelet Vol. 9.5 fl (6.2-12.0); Platelet Count 346 K/mm3 (150-450); RBC Distribution Width CV 15.5 % (11.6-14.6); RBC Distribution Width SD 47.6 fl (35.1-43.9); Red Blood Count 3.81 M/mm3 (4.2-5.4); White Blood Count 12.6 K/mm3 (4.4-11.0)
[2023-01-13 13:54] LABS: Glucose Challenge Gest 1H 50g 115 mg/dL (70-140)
[2023-01-13 14:15] LABS: Syphilis Antibodies Non-reactive
== END | disposition home or self-care (01) ==
LOC: LAB 12:53
PROVIDERS: Referring Provider Obstetrics & Gynecology; Visit Provider Obstetrics & Gynecology
DX: Z34.82 Encounter for supervision of other normal pregnancy, second trimester (principal)
CPT/HCPCS: 36415; 82950; 85027; 86780